=== PATIENT | female | born 1985 | race American Indian/Alaskan Native ===

== ENCOUNTER 2018-06-07 16:57 | Emergency (ER) | payer OTHER ==
[2018-06-07] MEDS ORDERED: Sodium Chloride 0.9% 1,000 ML IV STA (17:19)
[2018-06-07 17:57] LABS: BASO % 0.6 % (0.0-2.0); EOS # 0.1 K/uL (0.0-0.7); EOS % 0.9 % (0.0-4.0); HEMOGLOBIN 13.5 g/dL (12.0-16.0); LYMPH # 3.3 K/uL (1.0-4.3); LYMPH % 47.5 % (20.0-40.0); MEAN CELL VOLUME 82.4 fl (81.0-99.0); MEAN CORPUSCULAR HEMOGLOBIN 27.3 pg (27.0-31.0); MEAN CORPUSCULAR HGB CONC 33.2 g/dL (33.0-37.0); MEAN PLATELET VOLUME 7.4 fl (7.2-11.7); MONO # 0.5 K/uL (0.0-0.8); MONO % 6.9 % (0.0-10.0); NEUT # 3.1 K/uL (1.8-7.0); NEUT % 44.1 % (50.0-75.0); NRBC % 0.1 % (0.0-0.0); RBC 4.93 Mil/uL (3.80-5.20); RED CELL DISTRIBUTION WIDTH 13.9 % (11.5-14.5)
[2018-06-07 18:18] LABS: ALB/GLOB RATIO 1.3 (1.0-2.1); ALT/SGPT 25 U/L (9-52); AST/SGOT 28 U/L (14-36); BLOOD UREA NITROGEN 19 mg/dl (7-17); CALCIUM 10.4 mg/dL (8.4-10.2); GFR NON-AFRICAN AMERICAN > 60
[2018-06-07 18:51] LABS: SQUAMOUS EPITHIAL 6 /hpf (0-5); URINE BACTERIA RARE (<OCC); URINE BILIRUBIN NEGATIVE (NEGATIVE); URINE BLOOD SMALL (NEGATIVE); URINE CLARITY CLOUDY (Clear); URINE COLOR YELLOW (YELLOW); URINE GLUCOSE (UA) NEG (Normal); URINE LEUKOCYTE ESTERASE LARGE Leu/uL (Negative); URINE PROTEIN 100 mg/dL (NEGATIVE); URINE UROBILINOGEN 0.2-1.0 mg/dL (0.2-1.0)
--- NOTE | 2018-06-07 20:21 | ED PDOC ---
HPI: Abdomen Time Seen by Provider: 06/07/18 16:59 Chief Complaint (Nursing): Abdominal Pain Chief Complaint (Provider): Lower abdominal pain, nausea/vomiting History Per: Patient History/Exam Limitations: no limitations Onset/Duration Of Symptoms: Days Outside of [place] travel?: No Current Symptoms Are (Timing): Still Present Location Of Pain/Discomfort: RLQ, Suprapubic Quality Of Discomfort: Sharp, Cramping Additional Complaint(s): 32 yo male with endometriosis presents for evaluation of lower abdominal pain and vomiting. Pt was in ER for evaluation of 5 month old son vomtiing x 3 days when she developed lower abdominal pain and vomiting. Pt without fever. Pt breast feeding. Note - Sone being admitted for comirting Past Medical History Reviewed: Historical Data, Nursing Documentation, Vital Signs Vital Signs: Last Vital Signs Temp 98.8 F 06/07/18 17:10 Pulse 86 06/07/18 17:10 Resp 16 06/07/18 17:10 BP 118/40 L 06/07/18 17:10 Pulse Ox 99 06/07/18 17:10 - Medical History PMH: Denies: Chronic Kidney Disease Other PMH: Endometreosis - Surgical History Surgical History: Denies: No Surg Hx - Family History Family History: States: No Known Family Hx - Home Medications Home Medications: Ambulatory Orders Medication Instructions Recorded Ondansetron ODT [Zofran ODT] 4 mg PO QID #20 odt 06/07/18 - Allergies Allergies/Adverse Reactions: Allergies Allergy/AdvReac Type Severity Reaction Status Date / Time No Known Allergies Allergy Verified 06/07/18 17:19 Review of Systems ROS Statement: Except As Marked, All Systems Reviewed And Found Negative Constitutional: Negative for: Fever, Chills Gastrointestinal: Positive for: Nausea, Vomiting, Abdominal Pain. Negative for : Diarrhea Physical Exam - Reviewed Nursing Documentation Reviewed: Yes Vital Signs Reviewed: Yes - Physical Exam Appears: Positive for: Well, Non-toxic, No Acute Distress Head Exam: Positive for: ATRAUMATIC, NORMAL INSPECTION, NORMOCEPHALIC Skin: Positive for: Normal Color, Warm, DRY Eye Exam: Positive for: Normal appearance ENT: Positive for: Normal ENT Inspection Neck: Positive for: Normal, Painless ROM Cardiovascular/Chest: Positive for: Regular Rate, Rhythm Respiratory: Positive for: Normal Breath Sounds. Negative for: Accessory Muscle Use, Respiratory Distress Gastrointestinal/Abdominal: Positive for: Soft, Tenderness (Lower abdomen, bilateral ) Back: Positive for: Normal Inspection Extremity: Positive for: Normal ROM Neurologic/Psych: Positive for: Alert, Oriented - Laboratory Results Result Diagrams: 06/07/18 17:30 06/07/18 17:30 - ECG O2 Sat by Pulse Oximetry: 99 Medical Decision Making Medical Decision Making: Discussed return for RLQ tenderness. Labs normal. Pt feels better with zofran. No other medications given due to breast feeding. Disposition - Clinical Impression Clinical Impression: Gastroenteritis - Patient ED Disposition Is Patient to be Admitted: No Counseled Patient/Family Regarding: Diagnosis, Need For Followup, Rx Given - Disposition Referrals: Houston Crews MD, PhD [Staff Provider] - Disposition: Routine/Home Disposition Time: 20:20 Condition: GOOD Prescriptions: Ondansetron ODT [Zofran ODT] 4 mg PO QID #20 odt Instructions: Gastroenteritis (ED)
[2018-06-07 21:10] VITALS: BP 117/64; PULSE 84; RESP 16; TEMP 98.2; O2SAT 100
== END 2018-06-07 20:35 | disposition home or self-care (01) ==
LOC: H.ER 16:57
DX: K52.9 Noninfective gastroenteritis and colitis, unspecified (principal); N80.9 Endometriosis, unspecified
CPT/HCPCS: 80053; 81003; 81025; 82948; 85025; 87086; 96374; 99285; J1885; J2405; J7030